=== PATIENT | female | born 1965 | race American Indian/Alaskan Native ===

== ENCOUNTER 2019-06-15 10:17 | Emergency (ER) | payer BC ==
[2019-06-15 10:27] VITALS: BP 117/76
[2019-06-15 11:23] LABS: Basophils % (Auto) 0.2 % (0.0-1.8); Eosinophils % (Auto) 0.2 % (0.0-4.3); Hematocrit 43.4 % (30.3-42.9); Mean Corpuscular HGB Conc 32 % (30-34); Mean Corpuscular Volume 82 fl (79-97); Monocytes # (Auto) 0.5 K/mm3 (0.0-0.8); Monocytes % (Auto) 5.5 % (0.0-7.3); Platelet Count 223 K/mm3 (140-440); Red Blood Count 5.28 M/mm3 (3.65-5.03); Red Cell Distribution Width 13.9 % (13.2-15.2)
--- NOTE | 2019-06-15 11:25 | Emergency Department Report ---
ED Anxiety HPI - General Chief Complaint: Anxiety Stated Complaint: ANXIETY/DEPRESSION Time Seen by Provider: 06/15/19 11:12 Source: patient Mode of arrival: Ambulatory - History of Present Illness Initial Comments: Patient is a 53-year-old female who presents to emergency room with complaints of anxiety that began 3 days ago. pt states that she has a history of anxiety and major depression. Pt states that she has had some financial stressors lately. Patient states that she intermittently feels like her stomach knots when she feels anxious and has occasional diarrhea. Patient denies any shortness of breath, palpitations, chest pain, any other symptoms. she denies any abdominal pain currently or N/V/D, fever, chills. she says she called the crisis line 3 days ago and they advised her to attend therapy regularly and take her medication as prescribed. States that she just started taking Paxil 10 mg daily 4 days ago. Prior to that she had not been on her medication for one year. Denies any SI, HI, or hallucinations. she has never been admitted in a psychiatric hospital. Never had suicidal thoughts or suicide attempts. She denies any smoking or drug use. She very rarely ever drinks alcohol. She has a past medical history of asthma she states she has an allergy to tetracycline. - Related Data Allergies/Adverse Reactions: Allergies Allergy/AdvReac Type Severity Reaction Status Date / Time Tetracyclines Allergy Rash Verified 06/15/19 10:36 ED Review of Systems ROS: Stated complaint: ANXIETY/DEPRESSION Other details as noted in HPI Comment: All other systems reviewed and negative ED Past Medical Hx - Past Medical History Previous Medical History?: Yes Hx Psychiatric Treatment: Yes (Major depression and Anxiety) Hx Asthma: Yes - Surgical History Past Surgical History?: Yes Additional Surgical History: [place] x2 - Social History Smoking Status: Never Smoker Substance Use Type: None ED Physical Exam - General Limitations: No Limitations General appearance: alert, in no apparent distress - Head Head exam: Present: atraumatic, normocephalic - Eye Eye exam: Present: normal appearance - ENT ENT exam: Present: mucous membranes moist - Respiratory Respiratory exam: Present: normal lung sounds bilaterally. Absent: respiratory distress, wheezes, rales, rhonchi, stridor, chest wall tenderness, accessory muscle use, decreased breath sounds, prolonged expiratory - Cardiovascular Cardiovascular Exam: Present: regular rate, normal rhythm, normal heart sounds. Absent: systolic murmur, diastolic murmur, rubs, gallop - GI/Abdominal GI/Abdominal exam: Present: soft, normal bowel sounds. Absent: distended, tenderness, guarding, rebound, rigid - Neurological Exam Neurological exam: Present: alert, oriented X3 - Psychiatric Psychiatric exam: Present: normal affect, normal mood - Skin Skin exam: Present: warm, dry, intact ED Course Vital Signs 06/15/19 06/15/19 10:25 10:26 Temperature 98.6 F 98.6 F Pulse Rate 103 H Respiratory 15 Rate Blood Pressure 117/76 O2 Sat by Pulse 97 Oximetry ED Medical Decision Making - Lab Data Result diagrams: 06/15/19 10:46 06/15/19 10:46 Lab Results 06/15/19 06/15/19 06/15/19 Range/Units 10:46 10:46 10:46 WBC (4.5-11.0) K/mm3 RBC (3.65-5.03) M/mm3 Hgb (10.1-14.3) gm/dl Hct (30.3-42.9) % MCV (79-97) fl MCH (28-32) pg MCHC (30-34) % RDW (13.2-15.2) % Plt Count (140-440) K/mm3 Lymph % (Auto) (13.4-35.0) % Christian % (Auto) (0.0-7.3) % Eos % (Auto) (0.0-4.3) % Baso % (Auto) (0.0-1.8) % Lymph # (1.2-5.4) K/mm3 Christian # (0.0-0.8) K/mm3 Eos # (0.0-0.4) K/mm3 Baso # (0.0-0.1) K/mm3 Seg Neutrophils % (40.0-70.0) % Seg Neutrophils # (1.8-7.7) K/mm3 Sodium 143 (137-145) mmol/L Potassium 3.9 (3.6-5.0) mmol/L Chloride 104.9 (98-107) mmol/L Carbon Dioxide 25 (22-30) mmol/L Anion Gap 17 mmol/L BUN 12 (7-17) mg/dL Creatinine 0.8 (0.7-1.2) mg/dL Estimated GFR > 60 ml/min BUN/Creatinine Ratio 15 % Glucose 110 H (65-100) mg/dL Calcium 9.7 (8.4-10.2) mg/dL Salicylates < 0.3 L (2.8-20.0) mg/dL Acetaminophen < 5.0 L (10.0-30.0) ug/mL Plasma/Serum Alcohol (0-0.07) % 06/15/19 06/15/19 Range/Units 10:46 10:46 WBC 8.9 (4.5-11.0) K/mm3 RBC 5.28 H (3.65-5.03) M/mm3 Hgb 14.0 (10.1-14.3) gm/dl Hct 43.4 H (30.3-42.9) % MCV 82 (79-97) fl MCH 27 L (28-32) pg MCHC 32 (30-34) % RDW 13.9 (13.2-15.2) % Plt Count 223 (140-440) K/mm3 Lymph % (Auto) 11.0 L (13.4-35.0) % Christian % (Auto) 5.5 (0.0-7.3) % Eos % (Auto) 0.2 (0.0-4.3) % Baso % (Auto) 0.2 (0.0-1.8) % Lymph # 1.0 L (1.2-5.4) K/mm3 Christian # 0.5 (0.0-0.8) K/mm3 Eos # 0.0 (0.0-0.4) K/mm3 Baso # 0.0 (0.0-0.1) K/mm3 Seg Neutrophils % 83.1 H (40.0-70.0) % Seg Neutrophils # 7.4 (1.8-7.7) K/mm3 Sodium (137-145) mmol/L Potassium (3.6-5.0) mmol/L Chloride (98-107) mmol/L Carbon Dioxide (22-30) mmol/L Anion Gap mmol/L BUN (7-17) mg/dL Creatinine (0.7-1.2) mg/dL Estimated GFR ml/min BUN/Creatinine Ratio % Glucose (65-100) mg/dL Calcium (8.4-10.2) mg/dL Salicylates (2.8-20.0) mg/dL Acetaminophen (10.0-30.0) ug/mL Plasma/Serum Alcohol < 0.01 (0-0.07) % - Medical Decision Making Patient is a 53-year-old female who presents to emergency room with complaints of anxiety that began 3 days ago. pt states that she has a history of anxiety and major depression. Pt states that she has had some financial stressors lately. Patient states that she intermittently feels like her stomach knots when she feels anxious and has occasional diarrhea. Patient denies any shortness of breath, palpitations, chest pain, any other symptoms. she denies a ny abdominal pain currently or N/V/D, fever, chills. she says she called the crisis line 3 days ago and they advised her to attend therapy regularly and take her medication as prescribed. States that she just started taking Paxil 10 mg daily 4 days ago. Prior to that she had not been on her medication for one year. Denies any SI, HI, or hallucinations. she has never been admitted in a psychiatric hospital. Never had suicidal thoughts or suicide attempts. She denies any smoking or drug use. She very rarely ever drinks alcohol. She has a past medical history of asthma she states she has an allergy to tetracycline. VSS. labs were ordered prior to my examination, labs are stable. pt does not need 1013 or inpatient psych eval, she is not having SI/HI/psychosis. pt was evaluated by psych bus washer and agrees the patient is an outpatient candidate, I was informed by psych bus washer that she has an appointment with her psychiatrist on [phone], was given coping mechanisms for anxiety by the psych bus washer. pt requested something short term for her anxiety. I advised pt that the first line treatments for anxiety are CBT/coping mechanism and the pharm therapy is an SSRI. discussed with pt that she is already on the appropriate medication and that it can take up to 12 weeks for full effect. advised pt to discuss any medications with her psychiatrist. advised pt Please follow-up with your psychiatrist in the next 2-3 days. please use the coping mechanisms you were given by the crisis center and by our psych bus washer today. return to the emergency room immediately or call 911 if begin experiencing thoughts of wanting to hurt herself or others. pt verbalized understanding and agrees with plan. pt also given resources for the [facility] and [facility]. Critical care attestation.: If time is entered above; I have spent that time in minutes in the direct care of this critically ill patient, excluding procedure time. ED Disposition Clinical Impression: Anxiety Disposition: DC-01 TO HOME OR SELFCARE Is pt being admited?: No Does the pt Need Aspirin: No Condition: Stable Instructions: Anxiety (ED) Additional Instructions: Please follow-up with your psychiatrist in the next 2-3 days. please use the coping mechanisms you were given by the crisis center and by our psych bus washer today. return to the emergency room immediately or call 911 if begin experiencing thoughts of wanting to hurt herself or others. Listen to guided imagery and practice progressive muscle relaxation. Resources can be found online ([email or web address]). Referrals: [facility] [Outside] - 2-3 Days Time of Disposition: 12:19 Print Language: PASHTO
[2019-06-15 11:42] LABS: BUN/Creatinine Ratio 15; Blood Urea Nitrogen 12 mg/dL (7-17); Calcium 9.7 mg/dL (8.4-10.2); Hemolysis Index 6
== END 2019-06-15 13:21 | disposition home or self-care (01) ==
LOC: ED 10:17
DX: F41.9 Anxiety disorder, unspecified (principal); F32.9 Major depressive disorder, single episode, unspecified; J45.909 Unspecified asthma, uncomplicated; Z88.1 Allergy status to other antibiotic agents
CPT/HCPCS: 36415; 80048; 80320; 85025; G0480